=== PATIENT | male | born 1965 | race Two or more races ===

== ENCOUNTER 2025-03-20 15:47 | Outpatient (CLI) | payer OTHER ==
[2025-03-20 16:05] LABS: Urine Bacteria None Seen /hpf (None Seen)
[2025-03-20 16:17] LABS: Basophils # (auto) 0.1 10 ^3/uL (0-0.2); Basophils % (auto) 0.9 % (0.0-2.0); Eosinophils # (auto) 0.2 10 ^3/uL (0-0.8); Eosinophils % (auto) 2.6 % (0.0-7.0); Hematocrit 38.5 % (41.0-53.0); Lymphocytes # (auto) 1.7 10 ^3/uL (0.4-5.4); Lymphocytes % (auto) 25.5 % (10.0-50.0); Mean Corpuscular Hemoglobin 30.8 pg (28.0-32.0); Mean Corpuscular Hgb Conc. 33.7 g/dL (32.0-36.0); Mean Corpuscular Volume 91.3 fL (80.0-100.0); Monocytes # (auto) 0.5 10 ^3/uL (0-1.3); Monocytes % (auto) 7.4 % (0.0-12.0); Neutrophils # (auto) 4.2 10 ^3/uL (1.6-8.6); Neutrophils % (auto) 63.6 % (37.0-80.0); Nucleated Red Blood Cells % 0.1 %; Platelet Count (auto) 216 10^3/uL (140-450); Red Blood Cells 4.22 10^6/uL (4.5-5.90); Red Cell Distribution Width 16.2 % (11.8-14.3); White Blood Cell 6.7 10^3/uL (4.4-10.8)
[2025-03-20 16:23] LABS: Urine Amorphous Crystal FEW /hpf (None Seen); Urine Blood Negative /uL (Negative); Urine Clarity Clear (Clear); Urine Color Yellow (Yellow); Urine Mucus FEW (None Seen); Urine Protein, UAD Negative (Negative); Urine Specific Gravity 1.024 (1.001-1.035); Urine Squamous Epithelial Cell None Seen /hpf (<5); Urine Urobilinogen Normal (Negative); Urine WBC 1 /HPF (0-3)
[2025-03-20 16:32] LABS: Alanine Aminotransferase 14 U/L (7-40); Albumin 4.2 g/dL (3.2-4.8); Alkaline Phosphatase 89 U/L (46-116); Anion Gap 9 (5-15); Aspartate Aminotransferase 20 U/L (13-40); BUN/Creatinine Ratio 19.4 (10.0-20.0); Blood Urea Nitrogen 14 mg/dL (9-23); Calcium 9.5 mg/dL (8.7-10.4); Carbon Dioxide 27 mmol/L (20-31); Glucose 98 mg/dL (74-106); LDL Cholesterol 70 mg/dL (< 100); Potassium 3.9 mmol/L (3.5-5.1); Sodium 144 mmol/L (136-145); Total Protein 6.8 g/dL (5.7-8.2); Triglycerides 110 mg/dL (< 150)
[2025-03-20 16:33] LABS: Bilirubin, Total 0.8 mg/dL (0.2-1.0); Cholesterol 119 mg/dL (< 200); Prostate Specific Antigen 0.18 ng/mL (0.0-4.0)
[2025-03-20 16:36] LABS: Chloride 108 mmol/L (98-107); HDL Cholesterol 30 mg/dL (40-59)
[2025-03-20 16:37] LABS: Follicle Stimulating Hormone 25.99 IU/L (1.4-18.1)
[2025-03-20 16:38] LABS: Leuteinizing Hormone 12.9 IU/L (1.5-9.3)
[2025-03-22 11:43] LABS: Hepatitis A Total Antibody Positive (Negative); Hepatitis B Core Total AB Negative (Negative); Hepatitis B Surface Antibody Negative (Negative); Hepatitis B Surface Antigen Negative (Negative); Hepatitis C Antibody Negative (Negative)
== END 2025-03-20 17:00 | disposition home or self-care (01) ==
LOC: LAB 15:47
PROVIDERS: ATTEND Nurse Practitioner Family
DX: E29.1 Testicular hypofunction (principal); E66.01 Morbid (severe) obesity due to excess calories; E55.9 Vitamin D deficiency, unspecified; Z12.11 Encounter for screening for malignant neoplasm of colon; R22.40 Localized swelling, mass and lump, unspecified lower limb
CPT/HCPCS: 36415; 80053; 80061; 81001; 82306; 83001; 83002; 83036; 83880; 84153; 84403; 84443; 85025; 86703; 86704; 86706; 86708; 86780; 86803; 87340

== ENCOUNTER 2025-09-24 12:13 | Outpatient (CLI) | payer OTHER ==
[2025-09-24 13:02] LABS: Hematocrit 40.5 % (41.0-53.0); Hemoglobin 14.0 g/dL (13.5-17.5); Mean Corpuscular Hemoglobin 31.3 pg (28.0-32.0); Mean Corpuscular Volume 90.2 fL (80.0-100.0); Nucleated Red Blood Cells % 0.0 %
[2025-09-24 13:36] LABS: Alanine Aminotransferase 13 U/L (7-40); Albumin 4.3 g/dL (3.2-4.8); Alkaline Phosphatase 110 U/L (46-116); Anion Gap 10 (5-15); BUN/Creatinine Ratio 18.8 (10.0-20.0); Blood Urea Nitrogen 15 mg/dL (9-23); Calcium 9.3 mg/dL (8.7-10.4); Carbon Dioxide 29 mmol/L (20-31); Chloride 103 mmol/L (98-107); Cholesterol 111 mg/dL (< 200); Glucose 104 mg/dL (74-106); Potassium 3.8 mmol/L (3.5-5.1); Sodium 142 mmol/L (136-145); Total Protein 7.6 g/dL (5.7-8.2); Triglycerides 75 mg/dL (< 150)
[2025-09-24 13:37] LABS: Bilirubin, Total 0.7 mg/dL (0.2-1.0)
[2025-09-24 13:41] LABS: HDL Cholesterol 38 mg/dL (40-59)
[2025-09-24 14:01] LABS: Urine Protein, UAD Negative (Negative)
== END 2025-09-24 17:00 | disposition home or self-care (01) ==
LOC: LAB 12:13
PROVIDERS: ATTEND Nurse Practitioner Family
DX: E78.5 Hyperlipidemia, unspecified (principal); E78.89 Other lipoprotein metabolism disorders; D64.89 Other specified anemias; Z12.5 Encounter for screening for malignant neoplasm of prostate; Z12.11 Encounter for screening for malignant neoplasm of colon
CPT/HCPCS: 36415; 80053; 80061; 81001; 82306; 83036; 84403; 84443; 85025